=== PATIENT | female | born 1980 | race Caucasian/White ===

== ENCOUNTER 2016-04-08 08:40 | Inpatient (IN) | payer OTHER ==
[2016-04-08 10:11] LABS: ROM Internal QC QC Line Present
[2016-04-08] MEDS ORDERED: OBEPIDURAL* 250 ML ONE (20:44)
[2016-04-08 20:49] LABS: Hematocrit 34 % (35-47); Hemoglobin 11.3 g/dl (12.0-16.0); Mean Corpuscular HGB Conc 33 g/dl (31-36); Mean Corpuscular Hemoglobin 27 pg (27-31); Mean Corpuscular Volume 82 fL (80-97); Mean Platelet Volume 9 um3 (7.4-10.4); Red Blood Count 4.11 10^6/ul (4.0-5.4); Red Cell Distribution Width 13 % (10.5-15)
[2016-04-08] MEDS ORDERED: Phenylephrine IV* 40 MCG/ML 10 ML SYRINGE IV PUSH PRN (21:17)
[2016-04-08] MEDS ORDERED: Sodium Citrate/Citric Acid* 15 ML UDC PO PRN (21:17)
[2016-04-08] MEDS ORDERED: Famotidine TAB* 20 MG PO PRN (21:17)
[2016-04-08] MEDS ORDERED: EPHEDrine (Pressors)* 50 MG/ML VIAL IV PUSH PRN (21:17)
[2016-04-08] MEDS ORDERED: OBEPIDURAL* 250 ML EPIDURAL SCH (22:00)
[2016-04-09] MEDS ORDERED: Acetaminophen TAB* 325 MG PO ONE (04:20)
[2016-04-09] MEDS ORDERED: Oxytocin in LR* 20 UNITS/1,000 ML BAG IVPB ONE (05:26)
[2016-04-09] MEDS ORDERED: Oxytocin in LR* 20 UNITS/1,000 ML BAG IVPB SCH ×2 (06:00→10:00)
[2016-04-09] MEDS ORDERED: Acetaminophen TAB* 325 MG PO PRN (09:22)
[2016-04-09] MEDS ORDERED: Glycerin ADULT SUPP PR PRN (09:22)
[2016-04-09] MEDS ORDERED: oxyCODONE/Acetamin 5/325 MG* TAB PO PRN (09:22)
[2016-04-09] MEDS: Dibucaine 1% 28.35 GM TUBE PR PRN (11:09)
[2016-04-09] MEDS: Ibuprofen TAB* 600 MG PO PRN ×2 (11:09→17:37)
[2016-04-09] MEDS: Witch Hazel PAD* JAR TOPICAL PRN (11:09)
[2016-04-09] MEDS ORDERED: Simethicone TAB* 80 MG TAB.CHEW PO SCH (12:30)
[2016-04-09] MEDS: Docusate CAP* 100 MG PO SCH (14:12)
[2016-04-09] MEDS ORDERED: Phenylephrine IV* 40 MCG/ML 10 ML SYRINGE ONE (14:27)
[2016-04-10] MEDS: Docusate CAP* 100 MG PO SCH ×4 (00:19→21:01)
[2016-04-10] MEDS: Ibuprofen TAB* 600 MG PO PRN ×4 (00:19→23:55)
[2016-04-10 07:25] LABS: Hematocrit 23 % (35-47); Hemoglobin 7.7 g/dl (12.0-16.0); Mean Corpuscular HGB Conc 33 g/dl (31-36); Mean Corpuscular Hemoglobin 27 pg (27-31); Mean Corpuscular Volume 82 fL (80-97); Mean Platelet Volume 8 um3 (7.4-10.4); Red Blood Count 2.84 10^6/ul (4.0-5.4); Red Cell Distribution Width 14 % (10.5-15); White Blood Count 12.2 10^3/ul (3.5-10.8)
[2016-04-10] MEDS: Ferrous Gluconate TAB* 324 MG TAB PO SCH ×2 (09:08→21:02)
[2016-04-10] MEDS: Dibucaine 1% 28.35 GM TUBE PR PRN (09:11)
--- NOTE | 2016-04-10 13:36 | PTEDU ---
Patient Name: WILI WATERS WILI WATERS selected video: Never Ever Shake a Baby to view on 04/10/2016 at 1:35:21 PM from [id number]
--- NOTE | 2016-04-10 13:48 | PTEDU ---
Patient Name: WILI WATERS WILI WATERS selected video: BBOB: Nurturing Your Gorgeous \T\Growing Baby by to v [email or web address] on 04/10/2016 at 1:47:29 PM from [id number]
[2016-04-11] MEDS: Witch Hazel PAD* JAR TOPICAL PRN (02:57)
[2016-04-11] MEDS: Ibuprofen TAB* 600 MG PO PRN (06:07)
[2016-04-11 08:14] VITALS: BP 118/70
[2016-04-11] MEDS: Docusate CAP* 100 MG PO SCH (08:31)
[2016-04-11] MEDS: Ferrous Gluconate TAB* 324 MG TAB PO SCH (08:31)
[2016-04-11] MEDS: Dibucaine 1% 28.35 GM TUBE PR PRN (11:20)
== END 2016-04-11 11:58 | disposition home or self-care (01) | DRG 775 ==
LOC: MCHOBOUT 08:40 → MCHOB 11:51
PROVIDERS: ADMIT Midwife; ATTEND Midwife
PROC: 0UQMXZZ Repair Vulva, External Approach (ICD-10-PCS; principal; 2016-04-09)
PROC: 10E0XZZ Delivery of Products of Conception, External Approach (ICD-10-PCS; 2016-04-09)
PROC: 0UQGXZZ Repair Vagina, External Approach (ICD-10-PCS; 2016-04-09)
PROC: 4A1HXCZ Monitoring of Products of Conception, Cardiac Rate, External Approach (ICD-10-PCS; 2016-04-09)
DX: O70.0 First degree perineal laceration during delivery (principal); O90.81 Anemia of the puerperium; Z3A.38 38 weeks gestation of pregnancy; Z37.0 Single live birth; Z84.81 Family history of carrier of genetic disease
CPT/HCPCS: 36415; 84112; 85025; 86850; 86900; 86901; A9270-GY

== ENCOUNTER 2018-07-20 20:58 | Inpatient (IN) | payer OTHER ==
[2018-07-20] MEDS ORDERED: OBEPIDURAL* 0 ML EPIDURAL ONE (21:16)
[2018-07-20] MEDS ORDERED: Buffered Lidocaine 1% SYRIN* 1 ML/SYRINGE INTRADERM ONE (21:16)
[2018-07-20] MEDS ORDERED: Lactated Ringers 1000 ML Bag* 1,000 ML IV ONE ×2 (21:16→22:20)
[2018-07-20 21:26] LABS: ABS Basophils 0.1 10^3/ul (0-0.2); ABS Eosinophils 0.1 10^3/ul (0-0.6); ABS Lymphocytes 2.9 10^3/ul (1.0-4.8); ABS Monocytes 0.5 10^3/ul (0-0.8); ABS Neutrophils 5.1 10^3/ul (1.5-7.7); ABS Nucleated RBC 0 10^3/ul; Eosinophil % 0.9 %; Hematocrit 34 % (33-41); Hemoglobin 11.4 g/dL (12.0-16.0); Lymphocyte % 33.4 %; Mean Corpuscular HGB Conc 33 g/dL (31-36); Mean Corpuscular Hemoglobin 27 pg (27-31); Mean Corpuscular Volume 79 fL (80-97); Mean Platelet Volume 9.3 fL (7.4-10.4); Nucleated Red Blood Cells % 0.1; Platelet Count 205 10^3/uL (150-450); Red Cell Distribution Width 14 % (10.5-15); White Blood Count 8.6 10^3/uL (3.5-10.8)
[2018-07-20] MEDS ORDERED: Bupivacaine 0.25% SDV PF* 10 ML VIAL INJ ONE (21:51)
[2018-07-20] MEDS ORDERED: fentaNYL* 50 MCG/ML 2 ML VIAL (100 MCG VIAL) ONE (21:51)
[2018-07-20] MEDS ORDERED: fentaNYL* 50 MCG/ML 5 ML VIAL (250 MCG VIAL) ONE (21:51)
[2018-07-20] MEDS ORDERED: Lactated Ringers 1000 ML Bag* 1,000 ML IV SCH ×2 (22:00→23:00)
--- NOTE | 2018-07-20 22:03 | PN ---
Progress Note - Progress Note Date of Service: 07/20/18 Note: Pt very uncomfortable, requested epidural. Anesthesiologist at bedside, pt with difficulty staying still. Exam found pt to be 9cm. Possible SROM. Dr. Hernandez currently at bedside performing spinal.
[2018-07-20] MEDS ORDERED: Sodium Citrate/Citric Acid* 15 ML UDC PO PRN (22:20)
[2018-07-20] MEDS ORDERED: Famotidine TAB* 20 MG PO PRN (22:20)
[2018-07-20] MEDS ORDERED: Phenylephrine 40 MCG/ML SYRINGE IV PUSH PRN ×2 (22:20)
[2018-07-20] MEDS ORDERED: EPHEDrine (Pressors)* 50 MG/ML VIAL IV PUSH PRN ×2 (22:20)
[2018-07-20] MEDS ORDERED: Lactated Ringers 1000 ML Bag* 500 ML IV PRN ×2 (22:20)
[2018-07-20] MEDS ORDERED: Oxytocin in LR* 0 UNITS/0 ML BAG IVPB ONE (22:33)
--- NOTE | 2018-07-20 22:43 | HP ---
General Information - Reason for Visit Pt reports strong contractions, increasing in intensity and frequency. - General Information Maternal Age: 37 Grav: 2 Para: 1 SAB: 0 IEA: 0 Estimated Due Date: 07/17/18 Determined By: LMP Maternal Blood Type and Rh: A Positive - Results this Serology/RPR Result: Non-Reactive Rubella Result: Immune HBsAg Result: Negative HIV Result: Negative GBS Culture Result: Negative Past Medical History Delivery History: Hx Uncomplicated Vaginal Delivery Pertinent Past Medical History: Non-Contributory Pertinent Past Surgical History: None Pertinent Family History: Non-Contributory - Antepartal Records Antepartal Records: Reviewed, Complicated by: - itching, possible cholestasis Review of Systems Constitutional: Uncomfortable CV Complaint: No Respiratory: Shortness of Breath: No Gastrointestinal: No Nausea/Vomiting, Normal Bowel Movement Genitourinary: No Dysuria, No Bleeding, No Leaking Fluid - no leaking fluid on arrival, experienced SROM while preparing for intrathecal Musculoskeletal: Contractions Neurological: No Headache, No Visual Changes Movement: Normal Exam Allergies/Adverse Reactions: Allergies No Known Allergies Allergy (Verified 04/08/16 09:53) T-98.4, P-65, R-20, BP- 134/82 Lab Values - Entire Visit: Laboratory Tests 07/20/18 21:10 WBC 8.6 RBC 4.30 Hgb 11.4 L Hct 34 MCV 79 L MCH 27 MCHC 33 RDW 14 Plt Count 205 MPV 9.3 Neut % (Auto) 59.2 Lymph % (Auto) 33.4 [place] % (Auto) 5.5 Eos % (Auto) 0.9 Baso % (Auto) 1.0 Absolute Neuts (auto) 5.1 Absolute Lymphs (auto) 2.9 Absolute Monos (auto) 0.5 Absolute Eos (auto) 0.1 Absolute Basos (auto) 0.1 Absolute Nucleated RBC 0 Nucleated RBC % 0.1 - Measurements Height: 5 ft 6 in Weight: 78.925 kg Weight in lbs: 174.030873 Body Mass Index (BMI): 28.0 Pre- Weight: 66.224 kg Weight Gained This : 28 lbs and 0 ozs - Exam Breast: Breast Exam Deferred CVA: No CVA Tenderness Extremities: No Edema Heart: Normal Rhythm/Heart Sounds HEENT: No Significant Findings Lungs: Clear Bilaterally Rectal: Rectal Exam Deferred Reflexes: DTR 2+ Thyroid: No Thyromegaly - Abdominal Exam Abdomen Exam: Non-Tender, Fundal Height Consistent with Dates - Ultrasound/Biophysical Profile Ultrasound Status: Not Done Targeted Exam Findings See L&D Outpatient Visit Provider Note for Findings: N/A Estimated Weight: 8# Cervical Exam: 6cm - on arrival, has since progressed Effacement: 100% Station: 0 Presenting Part: Vertex Membrane Status: Intact - on arrival, has since experienced SROM Bleeding/Discharge: Bloody Show EFM Findings - External Monitor Findings Baseline Heart Rate: 130 External Monitor Findings: Accelerations Present, No Pattern of Variable or Late Decelerations, Variability Moderate, Baseline Stable Contractions: Regular, Strong, 45-90 Seconds Contraction Frequency: 3-4 minutes Assessment/Plan - Assessment 37 year old in active labor at term, no evidence of acidemia - Plan Plan: Admit - Anticipate Vaginal Delivery - Date/Time of Admission Date of Admission: 07/20/18 Time of Admission: 21:14
[2018-07-20] MEDS ORDERED: Oxytocin in LR* 20 UNITS/1,000 ML BAG IVPB ONE (22:49)
[2018-07-20] MEDS ORDERED: OBEPIDURAL* 250 ML EPIDURAL SCH (23:00)
--- NOTE | 2018-07-20 23:07 | PN ---
Progress Note - Progress Note Date of Service: 07/20/18 Note: Pt resting comfortably after intrathecal. Will recheck when pt feels urge to push. FHR Cat I, no evidence of acidemia.
[2018-07-21] MEDS ORDERED: Oxytocin in LR* 20 UNITS/1,000 ML BAG IVPB SCH
[2018-07-21] MEDS ORDERED: Dibucaine 1% 28.35 GM TUBE PR PRN (00:15)
[2018-07-21] MEDS ORDERED: Witch Hazel PAD* JAR TOPICAL PRN (00:15)
[2018-07-21] MEDS ORDERED: Glycerin ADULT SUPP PR PRN (00:15)
[2018-07-21] MEDS ORDERED: Misoprostol TAB* 200 MCG PR ONE (00:15)
[2018-07-21] MEDS ORDERED: Lactated Ringers 1000 ML Bag* 1,000 ML IV SCH (01:00)
--- NOTE | 2018-07-21 01:07 | PROCNOTE ---
[facility] OB: Delivery Note - Delivery A Date of : 07/20/18 Time of : 23:29 [place] Sex: Female Score 1 Minute: 8 Score 5 Minutes: 8 Gestational Age in Weeks and Days at Delivery: 40 Weeks and 3 Days Delivery Method: Spontaneous Vaginal Labor: Spontaneous Did Patient attempt ?: N/A, No Previous Amniotic Fluid: Clear Estimated Blood Loss: 750 Anesthesia/Analgesia: CEI for Labor Anesthesia Comment: Dr. Hernandez Delivered By: Shreya Castro - Nursery Level of Nursery: Regular/Bedside - Perineum Perineal Injury: Perineal Laceration, 2nd Degree Perineal Repair: By Delivering Practioner - Events Delivery Events of Note: Pitocin Only After Delivery, Post- Bleeding - Meds Given - Risk for Falls Delivered OB Patient- Risk for Falls: Heavy Bleeding Fall Risk: Patient is at High Risk for Falls - Additional Delivery Notes Additional Delivery Notes: in spontaneous labor with SROM to clear fluid at 2144 received epidural for pain with good relief. Progressed to complete, began pushing at 2324. Infant crowned quickly OA to LINDA, loose nuchal x 1 reduced. Shoulders followed easily. Infant delivered to maternal abdomen, dried and stimulated. Vigorous, Apgars 8 and 8. Umbilical cord clamped x 2 and cut by FOB after over one minute , umbilical cord blood collected for donation. Brisk bleeding noted, pitocin IV started. Intact reynaldo placenta followed at 2335. Heavy bleeding continued , 800 mcg rectal cytotec given. Fundus firm and bleeding slowed. Perineum and vulva inspected, 2nd degree perineal laceration noted and repaired in the usual fashion. EBL = 750 cc. Mother and infant in stable condition at time of note, initiated. Addendum: Called back to room 07/21/18 at 0050 for bleeding. Fundus firm, unable to express any clots. Approx 10in by 10 in area on underbuttocks pad saturated with serosanguinous fluid without clots. Initial bag of pitocin already infused, will hang second bag at 125/hr. To reassess PRN
[2018-07-21] MEDS ORDERED: Lidocaine 1% INJ* 10 MG/ML 30 ML SDV ONE (03:10)
[2018-07-21 07:00] LABS: ABS Basophils 0 10^3/ul (0-0.2); ABS Eosinophils 0 10^3/ul (0-0.6); ABS Monocytes 0.6 10^3/ul (0-0.8); ABS Neutrophils 6.3 10^3/ul (1.5-7.7); ABS Nucleated RBC 0 10^3/ul; Eosinophil % 0.4 %; Hematocrit 26 % (33-41); Hemoglobin 8.8 g/dL (12.0-16.0); Lymphocyte % 22.2 %; Mean Corpuscular HGB Conc 33 g/dL (31-36); Mean Corpuscular Hemoglobin 26 pg (27-31); Mean Corpuscular Volume 79 fL (80-97); Mean Platelet Volume 9.1 fL (7.4-10.4); Nucleated Red Blood Cells % 0; Platelet Count 147 10^3/uL (150-450); Red Blood Count 3.33 10^6 /uL (3.70-4.87); Red Cell Distribution Width 14 % (10.5-15); White Blood Count 8.9 10^3/uL (3.5-10.8)
[2018-07-21] MEDS ORDERED: Ferrous Gluconate TAB* 324 MG TAB ONE (07:55)
[2018-07-21] MEDS: Ibuprofen TAB* 600 MG PO PRN ×3 (07:55→21:27)
[2018-07-21] MEDS: Ferrous Gluconate TAB* 324 MG TAB PO SCH (07:56)
[2018-07-21] MEDS: Docusate CAP* 100 MG PO SCH ×3 (07:56→21:27)
[2018-07-21] MEDS ORDERED: Simethicone TAB* 80 MG TAB.CHEW PO SCH (08:30)
[2018-07-22 07:31] LABS: ABS Basophils 0 10^3/ul (0-0.2); ABS Eosinophils 0.1 10^3/ul (0-0.6); ABS Lymphocytes 2.1 10^3/ul (1.0-4.8); ABS Monocytes 0.3 10^3/ul (0-0.8); ABS Neutrophils 3.3 10^3/ul (1.5-7.7); ABS Nucleated RBC 0 10^3/ul; Eosinophil % 1.1 %; Hematocrit 23 % (33-41); Hemoglobin 7.8 g/dL (12.0-16.0); Lymphocyte % 36.3 %; Mean Corpuscular HGB Conc 33 g/dL (31-36); Mean Corpuscular Hemoglobin 27 pg (27-31); Mean Corpuscular Volume 80 fL (80-97); Nucleated Red Blood Cells % 0; Platelet Count 128 10^3/uL (150-450); Red Blood Count 2.92 10^6 /uL (3.70-4.87); Red Cell Distribution Width 15 % (10.5-15); White Blood Count 5.9 10^3/uL (3.5-10.8)
[2018-07-22] MEDS: Ibuprofen TAB* 600 MG PO PRN ×2 (08:12→14:06)
[2018-07-22] MEDS: Docusate CAP* 100 MG PO SCH ×3 (08:12→21:05)
[2018-07-22] MEDS: Ferrous Gluconate TAB* 324 MG TAB PO SCH ×2 (08:13→21:06)
[2018-07-22] MEDS: Acetaminophen TAB* 325 MG PO PRN ×3 (09:01→20:14)
--- NOTE | 2018-07-22 13:37 | PN ---
Progress Note - Progress Note Date of Service: 07/22/18 Note: Was notified by RN pt having some bilateral abdominal pain. Fundus firm and down 2, non-tender. Scant lochia rubra. Normal BS, not tender to palpation. Uncomfortable with movement. Pain consistent with muscle strain. Will use heat packs for relief and reassess. -AM
[2018-07-22] MEDS ORDERED: Ketorolac INJ* 30 MG/ML 1 ML VIAL IM PRN (15:23)
[2018-07-22] MEDS ORDERED: oxyCODONE/Acetamin 5/325 MG* TAB PO ONE (15:39)
--- NOTE | 2018-07-22 15:49 | PN ---
Progress Note - Progress Note Date of Service: 07/22/18 Note: Called to bedside by RN. Pt passes clot and is having considerable abdominal pain. Medium-sized clot noted in pt's pad. Fundus down 3 from umbilicus, firm, no active bleeding with fundal massage. Afebrile. Consulted with [facility], pt may need to express additional clots with time or can be pains from and normal uterine involution. Pt stable. Will rx toradol and/or percocet for additional pain management, prn. Pt in agreement with plan. -AM
[2018-07-23 07:02] LABS: ABS Basophils 0 10^3/ul (0-0.2); ABS Eosinophils 0.1 10^3/ul (0-0.6); ABS Lymphocytes 2.5 10^3/ul (1.0-4.8); ABS Monocytes 0.3 10^3/ul (0-0.8); ABS Neutrophils 3.6 10^3/ul (1.5-7.7); ABS Nucleated RBC 0 10^3/ul; Hematocrit 25 % (33-41); Hemoglobin 8.3 g/dL (12.0-16.0); Mean Corpuscular HGB Conc 33 g/dL (31-36); Mean Corpuscular Hemoglobin 27 pg (27-31); Mean Corpuscular Volume 80 fL (80-97); Mean Platelet Volume 8.2 fL (7.4-10.4); Nucleated Red Blood Cells % 0.1; Platelet Count 150 10^3/uL (150-450); Red Cell Distribution Width 15 % (10.5-15); White Blood Count 6.6 10^3/uL (3.5-10.8)
[2018-07-23 07:51] VITALS: BP 127/75
[2018-07-23] MEDS: Ferrous Gluconate TAB* 324 MG TAB PO SCH (09:05)
[2018-07-23] MEDS: Docusate CAP* 100 MG PO SCH (09:05)
[2018-07-23] MEDS ORDERED: Measles, Mumps,Rubella VACC* 0.5 ML/VIAL SUBCUT ONE (09:34)
[2018-07-23] MEDS ORDERED: Ibuprofen TAB* 600 MG PO PRN ×2 (09:35→10:02)
== END 2018-07-23 11:01 | disposition home or self-care (01) | DRG 806 ==
LOC: MCHOBOUT 20:58 → MCHOB 21:14
PROVIDERS: ADMIT Midwife; ATTEND Midwife
PROC: 10E0XZZ Delivery of Products of Conception, External Approach (ICD-10-PCS; principal; 2018-07-20)
PROC: 0KQM0ZZ Repair Perineum Muscle, Open Approach (ICD-10-PCS; 2018-07-20)
PROC: 4A1HXCZ Monitoring of Products of Conception, Cardiac Rate, External Approach (ICD-10-PCS; 2018-07-20)
DX: O48.0 Post-term pregnancy (principal); O72.1 Other immediate postpartum hemorrhage; Z37.0 Single live birth; Z3A.40 40 weeks gestation of pregnancy; O69.81X0 Labor and delivery complicated by cord around neck, without compression, not applicable or unspecified; O75.89 Other specified complications of labor and delivery; K64.9 Unspecified hemorrhoids; O70.1 Second degree perineal laceration during delivery; O90.81 Anemia of the puerperium
CPT/HCPCS: 36415; 85025; 86850; 86900; 86901; 90707; A9270-GY; J1885; J3010; J3490